=== PATIENT | male | born 1955 | race Two or more races ===

== ENCOUNTER 2020-02-15 15:02 | Outpatient (CLI) | payer OTHER ==
[2020-02-15] MEDS ORDERED: SIMVASTATIN80 MG (17:59)
[2020-02-15] MEDS ORDERED: AVAPRO300 MG (17:59)
[2020-02-15] MEDS ORDERED: ZETIA10 MG (17:59)
== END 2020-02-15 16:00 | disposition home or self-care (01) ==
LOC: OFIC 805 15:02
PROVIDERS: ATTEND Otolaryngology
DX: H60.8X2 Other otitis externa, left ear (principal); H61.23 Impacted cerumen, bilateral; H93.8X3 Other specified disorders of ear, bilateral

== ENCOUNTER → 2020-02-22 | Outpatient (CLI) | payer OTHER ==
[~2020-02-22] MED LIST: AVAPRO300 MG; SIMVASTATIN80 MG; ZETIA10 MG
== END | disposition home or self-care (01) ==
LOC: OFIC 805 15:15
PROVIDERS: ATTEND Otolaryngology
DX: H60.8X2 Other otitis externa, left ear (principal); H61.23 Impacted cerumen, bilateral; H68.102 Unspecified obstruction of Eustachian tube, left ear

== ENCOUNTER 2020-07-12 08:55 | Day surgery (SDC) | payer OTHER | END 2020-07-12 14:15 | disposition home or self-care (01) | LOC: CIR.AMB 08:55 | PROVIDERS: ATTEND Orthopaedic Surgery | DX: M77.11 Lateral epicondylitis, right elbow (principal); Z20.822 Contact with and (suspected) exposure to COVID-19 ==